=== PATIENT | female | born 1975 | race African-American/Black ===

== ENCOUNTER 2017-04-19 19:30 | Emergency (ER) | payer OTHER ==
[2017-04-19 19:49] VITALS: BP 161/89; PULSE 89; TEMP 98; BMI 37.4
[2017-04-19] MEDS ORDERED: KETOROLAC TROMETHAMINE 60 MG/2 ML VIAL IM ONE (20:05)
[2017-04-19] MEDS ORDERED: KETOROLAC TROMETHAMINE 60 MG/2 ML VIAL ONE (20:06)
--- NOTE | 2017-04-19 20:11 | PDOC ---
History of Present Illness - General Chief Complaint: Pain Stated Complaint: RT ARM PAIN Time Seen by Provider: 04/19/17 19:48 - History of Present Illness Initial Comments: 04/19/17 20:05 CHIEF COMPLAINT: right arm pain HISTORY OF PRESENT ILLNESS: 41 yo F with hx of HTN (not on meds, currently controlled) presents to [facility] with pain to R arm s/p lifting heavy boxes at work yesterday. PAtient reports that she works at [employer] and had to break down multiple boxes and lift many heavy objects. SHe reports feeling "some tingling to my third and 4th fingers" when moving her wrist. She denies any loss of sensation or loss of ROM. PAST MEDICAL HISTORY: Denies past medical history FAMILY HISTORY: Denies SOCIAL HISTORY: Denies tobacco, alcohol, illicit drug use. SURGICAL HISTORY: Denies ALLERGIES: No known drug allergies REVIEW OF SYSTEMS General/Constitutional: Denies fever or chills. Denies weakness, weight change. HEENT: Denies change in vision. Denies ear pain or discharge. Denies sore throat. Cardiovascular: Denies chest pain or shortness of breath. Respiratory: Denies cough, wheezing, or hemoptysis. Gastrointestinal: Denies nausea, vomiting, diarrhea or constipation. Denies rectal bleeding. Genitourinary: Denies dysuria, frequency, or change in urination. Musculoskeletal: Pain to R arm and "tingling" to 3rd and 4th digits. Skin and breasts: Denies rash or easy bruising. PHYSICAL EXAM General Appearance: Well-appearing, appropriately dressed. No apparent distress. HEENT: EOMI, PERRLA. Respiratory/Chest: Lungs CTAB. Cardiovascular: RRR. S1, S2. Musculoskeletal/Extremities: + Phalen's test to R wrist. Full ROM to R wrist, elbow, and all fingers. Normal inspection. FROM of all other extremities, normal capillary refill. Pelvis Stable. No CVA tenderness. No tenderness to extremities, pedal edema, swelling, erythema or deformity. Integumentary: Appropriate color, dry, warm. No cyanosis, erythema, jaundice or rash Neurologic: twill cutter II-XII intact. Fully oriented, alert. Appropriate mood/affect. Motor strength 5/5. No appreciable EOM palsy, facial droop or sensory deficit. Past History - Past Medical History Allergies/Adverse Reactions: Allergies Allergy/AdvReac Type Severity Reaction Status Date / Time No Known Allergies Allergy Verified 04/19/17 19:44 Home Medications: Ambulatory Orders Ibuprofen [Motrin -] 800 mg PO TID #20 tablet 08/10/14 Loratadine/Pseudoephedrine Sul [Claritin-D 24 Hour Tablet] 1 tab PO DAILY #7 tab.sr.24h 08/10/14 Ibuprofen 600 mg PO TID #21 tablet 04/19/17 HTN: Yes Psychiatric Problems: Yes (SUICIDAL IN THE PAST) - Immunization History Immunization Up to Date: Yes - Psycho/Social/Smoking Cessation Hx Anxiety: No Suicidal Ideation: No Smoking History: Never smoked Have you smoked in the past 12 months: No Number of Cigarettes Smoked Daily: 0 Hx Alcohol Use: No Substance Use Type: None *Physical Exam - Vital Signs Last Vital Signs Temp Pulse Resp BP Pulse Ox 98 F 89 18 161/89 98 04/19/17 19:40 04/19/17 19:40 04/19/17 19:40 04/19/17 19:40 04/19/17 19:40 Medical Decision Making - Medical Decision Making 04/19/17 20:09 41 yo F with hx of HTN (not on meds, currently controlled) presents to [facility] with pain to R arm s/p lifting heavy boxes at work yesterday. Clinical presentation consistent with carpal tunnel syndrome. Patient states she is not as she has not been sexually active for a long time. -IM Toradol -Wrist splint Advised patient to f/u with ortho for further evaluation of pain if symptoms persist. patient verbalized understanding and agrees to plan. *DC/Admit/Observation/Transfer Diagnosis at time of Disposition: Carpal tunnel syndrome of right wrist - Discharge Dispostion Disposition: HOME Condition at time of disposition: Stable Admit: No - Prescriptions Prescriptions: Ibuprofen 600 mg PO TID #21 tablet - Referrals Referrals: Miki Evans MD [Staff Physician] - - Patient Instructions Printed Discharge Instructions: DI for Carpal Tunnel Syndrome Additional Instructions: As discussed, please use the wrist splint to immobilize your wrist this week. Take the medication as prescribed. If your symptoms persist after 1 week of taking the medication and using the splint, please follow up with orthopedics as discussed.
== END 2017-04-19 20:20 | disposition home or self-care (01) ==
LOC: JER 19:30 → JERFT 19:30
PROC: 3E0233Z Introduction of Anti-inflammatory into Muscle, Percutaneous Approach (ICD-10-PCS; principal; 2017-04-19)
DX: G56.01 Carpal tunnel syndrome, right upper limb (principal); X50.0XXA Overexertion from strenuous movement or load, initial encounter; Y93.89 Activity, other specified; Y92.512 Supermarket, store or market as the place of occurrence of the external cause; Y99.0 Civilian activity done for income or pay; I10 Essential (primary) hypertension
CPT/HCPCS: 96372; 99281-25